=== PATIENT | female | born 1940 | race Caucasian/White ===

== ENCOUNTER 2016-07-06 07:14 | Emergency (ER) | payer OTHER ==
[~2016-07-06] VITALS: Ht 160 cm; Wt 62.6 kg
[~2016-07-06 07:14] MED LIST: ACETAMINOP160 MG/51 PO; ACYCLOVIR200 MG/5 M PO; ALLOPURINOL100 MG PO; AMIODARONE HCL400 MG PO; ASPIR 8181 M1 PO; ASPIRIN81 M2 PO; ATIVAN2 MG/1 ML PO; AUGMENTIN875 MG PO; BACTRIM,SEPT1 TABLET PO; CALCIUM 500 MG1 EACH PO; CHILDREN'S ASPI81 M1 PO; CO Q-10100 MG PO; DECADRON4 MG/ML 1M IV; DRONABINOL2.5 MG PO; ENDOCET 5-3251 EACH PO; ENOXAPARIN60 MG/0.6 SC; LOPRESSOR25 MG PO; LOPRESSOR50 MG PO; LORAZEPAM0.5 MG PO; LOVENOX60 MG/0.6 SC; MAXIPIME2 GM IV; MELOXICAM15 MG PO; METHOTREXATE2.5 MG PO; METOPROLOL TART25 MG PO; MORPHINE SUL10 MG/M1 IV; MORPHINE SULFA1 DOSE SC; NEUPOGEN480 MCG/1. IV; NEURONTIN300 MG PO; ONDANSETRON4 MG/2 ML IV; ONDANSETRON4 MG/2 ML PO; OXYCODONE-APAP1 EACH PO; PERCOCET 5/31 TABLET PO; PERCOCET 7.51 TABLET PO; PROMETHAZINE HC25 M1 PO; SENOKOT,SENN1 TABLET PO; SUPER CALCIUM600 MG PO; TOPIRAMATE50 MG PO; TOPROL XL50 MG PO; TRANSDERM-SCO1 PATCH TD; TUMS FRESHERS200 MG PO; Tums,OsCal PO; VANCOMYCIN HCL1 GM PO; VITAMIN D2000 UNI1 PO; Vancocin Oral Solution PO; XARELTO15 MG PO; XARELTO20 MG PO; ZOFRAN4 MG PO; ZOVIRAX400 MG PO
[2016-07-06] MEDS ORDERED: GABAPENTIN300 MG PO (07:30)
[2016-07-06 08:03] LABS: EOSINOPHIL (%) 6.4 % (0-5); EOSINOPHIL COUNT 0.3 K/uL (0-0.3); HEMATOCRIT 35.7 % (36.0-46.0); IMMATURE GRANULOCYTE (%) 0.2 % (0.0-0.7); INSTRUMENT ABS NEUTROPHIL CT 2.9 K/uL; LYMPHOCYTE COUNT 0.6 K/uL (1.0-2.8); MCH 30.3 PG (29.0-34.0); MCHC 33.1 G/DL (30.0-36.0); MCV 91.8 FL (83-99); MEAN PLAT.VOLUME 10.9 uM^3 (9.5-12.4); MONOCYTE (%) 11.9 % (3-12); MONOCYTE COUNT 0.5 K/uL (0-0.8); NEUTROPHIL COUNT 2.9 K/uL (1.8-6.4); PLATELET COUNT 184 K/uL (156-360); RBC DIS.WIDTH-CV 13.5 % (11.8-14.6); RBC DIS.WIDTH-SD 45.1 % (39-53); RED BLOOD COUNT 3.89 M/uL (3.80-5.20); WHITE BLOOD COUNT 4.4 K/uL (4.1-10.2)
[2016-07-06 08:12] LABS: INTER. NORMALIZED RATIO 1.2; PTT 28.4 (25-32)
[2016-07-06 08:34] LABS: TROP-I INTERPRETATION NEGATIVE; TROPONIN-I 0.02 ng/mL (0.0-0.30)
[2016-07-06 08:52] LABS: ANION GAP 10 MEQ/L (2-14); CHLORIDE 105 MEQ/L (99-109); SAMPLE HEMOLYSIS CHECK 0; SAMPLE ICTERIC CHECK 0; SAMPLE LIPEMIA CHECK 0; SODIUM 140 MEQ/L (136-147)
[2016-07-06 08:57] LABS: GFR ESTIMATE (CALCULATED) > 59 mL/min/; GLUCOSE 103 mg/dL (70-99); UREA NITROGEN (BUN) 19 mg/dL (9-23)
[2016-07-06] MEDS ORDERED: TYLENOL WITH C1 EACH PO (11:35)
[2016-07-06 11:54] VITALS: BP 97/49
== END 2016-07-06 11:55 | disposition home or self-care (01) ==
LOC: EME 07:14
PROVIDERS: Emergency Medicine
DX: R07.89 Other chest pain (principal); E78.5 Hyperlipidemia, unspecified; I25.2 Old myocardial infarction; M06.9 Rheumatoid arthritis, unspecified; Z95.1 Presence of aortocoronary bypass graft; Z87.891 Personal history of nicotine dependence
CPT/HCPCS: 71010; 71260; 80048; 84484; 85025; 85610; 85730; 93005; 99281; 99284; J7030

== ENCOUNTER 2016-07-14 05:52 | Emergency (ER) | payer OTHER ==
[~2016-07-14] VITALS: Ht 160 cm; Wt 60.2 kg
[~2016-07-14 05:52] MED LIST changes: +GABAPENTIN300 MG PO; +TYLENOL WITH C1 EACH PO
[2016-07-14 07:03] LABS: EOSINOPHIL (%) 5.2 % (0-5); EOSINOPHIL COUNT 0.3 K/uL (0-0.3); HEMATOCRIT 35.9 % (36.0-46.0); IMMATURE GRANULOCYTE (%) 0.2 % (0.0-0.7); INSTRUMENT ABS NEUTROPHIL CT 3.8 K/uL; LYMPHOCYTE COUNT 0.7 K/uL (1.0-2.8); MCH 30.7 PG (29.0-34.0); MCHC 33.7 G/DL (30.0-36.0); MCV 91.1 FL (83-99); MEAN PLAT.VOLUME 10.8 uM^3 (9.5-12.4); MONOCYTE (%) 10.8 % (3-12); MONOCYTE COUNT 0.6 K/uL (0-0.8); NEUTROPHIL (%) 69.8 % (45-76); NEUTROPHIL COUNT 3.8 K/uL (1.8-6.4); PLATELET COUNT 222 K/uL (156-360); RBC DIS.WIDTH-CV 13.3 % (11.8-14.6); RBC DIS.WIDTH-SD 44.5 % (39-53); RED BLOOD COUNT 3.94 M/uL (3.80-5.20); WHITE BLOOD COUNT 5.4 K/uL (4.1-10.2)
[2016-07-14 07:25] LABS: TROP-I INTERPRETATION NEGATIVE; TROPONIN-I 0.02 ng/mL (0.0-0.30)
[2016-07-14 07:34] LABS: CHLORIDE 107 mEq/L (99-109); POTASSIUM 4.4 mEq/L (3.7-5.4); SODIUM 141 mEq/L (136-147)
[2016-07-14 07:36] LABS: GLUCOSE 93 mg/dL (70-99)
[2016-07-14 07:37] LABS: ANION GAP 10 MEQ/L (2-14)
[2016-07-14 07:41] LABS: UREA NITROGEN (BUN) 18 mg/dL (9-23)
[2016-07-14 07:44] LABS: GFR ESTIMATE (CALCULATED) > 59 mL/min/
[2016-07-14] MEDS ORDERED: FLEXERIL5 MG PO (08:11)
[2016-07-14 09:08] VITALS: BP 122/66
== END 2016-07-14 09:11 | disposition home or self-care (01) ==
LOC: EME 05:52
PROVIDERS: Emergency Medicine
DX: M54.6 Pain in thoracic spine (principal); E78.5 Hyperlipidemia, unspecified; I25.2 Old myocardial infarction; Z95.1 Presence of aortocoronary bypass graft; Z88.6 Allergy status to analgesic agent; Z87.891 Personal history of nicotine dependence
CPT/HCPCS: 71010; 80048; 81003; 84484; 85025; 93005; 99281; 99284

== ENCOUNTER → 2016-12-31 | Outpatient (CLI) | payer MEDICARE, OTHER ==
[~2016-12-31] MED LIST changes: +FLEXERIL5 MG PO
== END | disposition home or self-care (01) ==
LOC: CDC 11:57
DX: Z01.810 Encounter for preprocedural cardiovascular examination (principal); H25.12 Age-related nuclear cataract, left eye; R94.31 Abnormal electrocardiogram [ECG] [EKG]
CPT/HCPCS: 93000